=== PATIENT | female | born 1930 | race Asian ===

== ENCOUNTER → 2016-08-23 | Outpatient (CLI) | payer OTHER ==
[~2016-08-23] MED LIST: ACET325T47 PO; AMLO5TAB66 PO; ASPI81TA2 PO; GLIP5TAB11 PO; HYDR-4173 PO; METF10002; MVI PO; PIOG30TA2 PO; PREG75 PO
== END | disposition home or self-care (01) ==
LOC: RADPV 11:13
PROVIDERS: ATTEND Internal Medicine
DX: M19.041 Primary osteoarthritis, right hand (principal)